=== PATIENT | male | born 1980 | race Caucasian/White ===

== ENCOUNTER 2017-01-26 20:08 | Emergency (ER) | payer OTHER ==
[2017-01-26 20:15] VITALS: BP 137/93; PULSE 98; RESP 16; TEMP 98
[2017-01-26] MEDS ORDERED: HYDROmorphone 1 MG/ML 1 ML SYRINGE IVP STA (21:04)
[2017-01-26] MEDS ORDERED: ONDANSETRON ODT 4 MG TAB PO STA (21:04)
--- NOTE | 2017-01-26 21:16 | ED ---
General Adult HPI - General Chief complaint: Fall Stated complaint: Fall/Rib Pain Time Seen by Provider: 01/26/17 20:47 Source: patient, RN notes reviewed Mode of arrival: ambulatory Limitations: no limitations - History of Present Illness Initial comments: This is a 36-year-old male who presents with left-sided rib pain, left hip pain , lower back pain and neck pain after falling through a catwalk and landing on a beam below. Patient states he fell approximately 3 hours before he came to the . Patient states he did not fall more than 3 feet before he landed on his left side on a beam. Patient now states it hurts to take deep breaths. Patient states his lower back hurts when he gets up to walk. Patient also complains of left hip pain with walking. Patient was able to ambulate but this was very painful. Patient denies any numbness/tingling or weakness. Patient denies any change in bowel or bladder function, loss of sensation to the saddle area. Patient states he did not hit his head or lose consciousness. Patient states he does have some neck pain from the whiplash effect of falling. Patient denies any recent fever, chills, shortness breath, chest pain, abdominal pain, nausea/vomiting/diarrhea, numbness, tingling, hematuria, headache, or visual changes, dizziness or any other complaints. - Related Data Home Medications Medication Instructions Recorded Confirmed [place]-3 Fatty Acids/Fish Oil [Fish 1 cap PO DAILY 01/26/17 01/26/17 Oil 1,000 mg Softgel] Previous Rx's Medication Instructions Recorded HYDROcodone/APAP 5-325MG [Thurmond 1 tab PO Q6HR #12 tab 01/26/17 5-325] Allergies Allergy/AdvReac Type Severity Reaction Status Date / Time codeine AdvReac Nausea & Verified 01/26/17 20:31 Vomiting NSAIDS (Non-Steroidal AdvReac Nausea & Verified 01/26/17 20:31 Anti-Inflamma Vomiting Review of Systems ROS Statement: Those systems with pertinent positive or pertinent negative responses have been documented in the HPI. ROS Other: All systems not noted in ROS Statement are negative. Past Medical History Past Medical History: Asthma History of Any Multi-Drug Resistant Organisms: None Reported Past Surgical History: No Surgical Hx Reported Past Psychological History: No Psychological Hx Reported Smoking Status: Current every day smoker Past Alcohol Use History: None Reported, Rare Past Drug Use History: None Reported General Exam - General Exam Comments Initial Comments: General: The patient is awake and alert, in no distress, and does not appear acutely ill. Eye: Pupils are equal, round and reactive to light, extra-ocular movements are intact. No nystagmus. There is normal conjunctiva bilaterally. No signs of icterus. Mouth and throat: There are moist mucous membranes and no oral lesions. Neck: There is mild cervical midline tenderness and tenderness of the cervical paraspinal muscles. The neck is supple, there is no tenderness or JVD. Cardiovascular: There is a regular rate and rhythm. No murmur, rub or gallop is appreciated. Respiratory: Lungs are clear to auscultation, respirations are non-labored, breath sounds are equal. No wheezes, stridor, rales, or rhonchi. Musculoskeletal: There is tenderness to the left lateral, posterior and anterior ribs. There is tenderness to the lumbar spine and to the left-sided lumbar paraspinal muscles. There is tenderness to the lateral aspect of the left hip. Normal ROM, Strength 5/5. Sensation intact. Radial pulses equal bilaterally 2+. Gastrointestinal: Soft, non-distended, non-tender abdomen without masses or organomegaly noted. There is no rebound or guarding present. Bowel sounds are unremarkable. Neurological: A&O x 3. CN II-XII intact, There are no obvious motor or sensory deficits. Coordination appears grossly intact. Speech is normal. Skin: There is faint ecchymosis to the left posterior lower back. Skin is warm and dry and no rashes or lesions are noted. Psychiatric: Cooperative, appropriate mood & affect, normal judgment. Limitations: no limitations Course Vital Signs 01/26/17 20:12 Temperature 98.0 F Pulse Rate 98 Respiratory 16 Rate Blood Pressure 137/93 O2 Sat by Pulse 98 Oximetry Medical Decision Making - Medical Decision Making This is a 36-year-old male who presents after a fall that happened today. On physical exam patient is neurologically intact. There is tenderness to the left lateral, posterior and anterior ribs. There is tenderness to the lumbar spine and to the left-sided lumbar paraspinal muscles. There is tenderness to the lateral aspect of the left hip. Normal ROM, Strength 5/5. Sensation intact. Radial pulses equal bilaterally 2+. There is cervical midline tenderness present. Patient was given Dilaudid in the [facility] today. A CT of the C-spine was done and reviewed showing: Negative computed tomography scan of the cervical spine. No fracture. Reports read by Dr. Todd. X-rays of the left-sided ribs, chest x-ray, left hip and the lumbar and thoracic spine were done and reviewed showing: Negative thoracic spine exam. No change. Report by Dr. Todd. Negative left rib exam. No fracture. Normal chest. Negative lumbar spine exam. No change. Report by Dr. Todd. Negative left hip exam. No change compared 06/20/2015. I discussed the results with patient. I discussed rib contusion and healing can take 4-6 weeks. I discussed the patient will receive a prescription of Thurmond. I discussed Motrin as needed. I discussed the importance of continued deep breaths to prevent pneumonia and atelectasis. Patient received an incentive spirometer before discharge. I discussed warm heating pads to the areas of pain. I discussed Return parameters. Patient was ambulatory in the [facility]. Discussed that patient should follow up with PCP in one to 2 days or return to the [facility] for any worsening symptoms or for any further concerns. Patient was receptive to this plan and patient will be discharged home. Disposition Clinical Impression: Contusion of rib on left side, Low back pain Disposition: HOME SELF-CARE Condition: Good Instructions: Rib Contusion (ED) Additional Instructions: Please take Thurmond as prescribed. May use Motrin as well. Please use warm heating pads to the area pain. Please continue to take deep breaths to prevent pneumonia or atelectasis. Bruised ribs can take 4-6 weeks to feel better. Please follow-up with your primary care physician in one to 2 days or return to the EC for any worsening symptoms or for any further concerns. Prescriptions: HYDROcodone/APAP 5-325MG [Thurmond 5-325] 1 tab PO Q6HR #12 tab Referrals: Jean Reina MD [Primary Care Provider] - 1-2 days Time of Disposition: 22:06
--- NOTE | 2017-01-26 21:33 | XR ---
EXAMINATION TYPE: XR ribs LT w pa chest xray DATE OF EXAM: 01/26/2017 9:28 PM COMPARISON: NONE HISTORY: Fall and rib pain TECHNIQUE: 5 views FINDINGS: Heart and mediastinum are normal. Lungs are clear. There is no sign of pleural effusion or pneumothorax. The left ribs appear intact. IMPRESSION: Negative left rib exam. No fracture. Normal chest.
--- NOTE | 2017-01-26 21:34 | XR ---
EXAMINATION TYPE: XR thoracic spine complete DATE OF EXAM: 01/26/2017 9:28 PM COMPARISON: 09/03/2016 HISTORY: Back pain TECHNIQUE: 3 views FINDINGS: Vertebra have normal spacing and alignment. Posterior elements are intact. There is no para spinal mass. There is no sign of compression fracture. IMPRESSION: Negative thoracic spine exam. No change.
--- NOTE | 2017-01-26 21:35 | XR ---
EXAMINATION TYPE: XR lumbar spine 2 or 3V DATE OF EXAM: 01/26/2017 9:28 PM COMPARISON: 09/03/2016 HISTORY: Back pain TECHNIQUE: 3 views FINDINGS: Lumbar vertebra have normal spacing and alignment. Posterior elements are intact. Sacroilia c joints appear normal. IMPRESSION: Negative lumbar spine exam. No change.
--- NOTE | 2017-01-26 21:37 | XR ---
EXAMINATION TYPE: XR Hip LT and AP Pelvis DATE OF EXAM: 01/26/2017 9:30 PM COMPARISON: 06/20/2015 HISTORY: Hip pain TECHNIQUE: 3 views FINDINGS: The pelvic ring is intact. Proximal left femur and hip joint appear intact. Sacroiliac join ts appear normal. CONCLUSION: Negative left hip exam. No change compared to 06/20/2015.
--- NOTE | 2017-01-26 21:45 | CT ---
EXAMINATION TYPE: CT cervical spine wo con DATE OF EXAM: 01/26/2017 9:41 PM COMPARISON: NONE HISTORY: Fall approximately 1 foot after cat walk gave way under him, landing on rafter at mid sectio n and bending forward. CT DLP: 360.40 mGycm Automated exposure control for dose reduction was used. TECHNIQUE: CT scan of the cervical spine is obtained without contrast, axial images are obtained, sa gittal and coronal reformatted images are also reviewed. FINDINGS: Cervical vertebra are fairly normal spacing and alignment. Posterior elements are intact. F acet joints appear intact. Skull base is intact. IMPRESSION: Negative CT scan of the cervical spine. No fracture.
[2017-01-26] MEDS ORDERED: HYDROmorphone 1 MG/ML 1 ML SYRINGE IM STA (22:08)
[2017-01-26] MEDS: HYDROmorphone 1 MG/ML 1 ML SYRINGE IVP STA ×2 (22:11→22:17)
== END 2017-01-26 22:23 | disposition home or self-care (01) ==
LOC: EC 20:08
DX: S20.212A Contusion of left front wall of thorax, initial encounter (principal); M54.5 Low back pain; M54.2 Cervicalgia; M25.552 Pain in left hip; F17.200 Nicotine dependence, unspecified, uncomplicated; Z79.899 Other long term (current) drug therapy; Z88.5 Allergy status to narcotic agent; Z88.6 Allergy status to analgesic agent; W17.89XA Other fall from one level to another, initial encounter; Y93.01 Activity, walking, marching and hiking
CPT/HCPCS: 71101; 72072; 72100; 73502; 72125; 99284; 96374; 96372; J1170

== ENCOUNTER 2017-01-29 08:00 | Emergency (ER) | payer OTHER ==
[2017-01-29 08:23] VITALS: BP 146/77; PULSE 98; RESP 20; TEMP 98.8
--- NOTE | 2017-01-29 09:00 | ED ---
Back Pain HPI - General Chief Complaint: Back Pain/Injury Stated Complaint: RIB AND BACK INJURY FROM FALL Time Seen by Provider: 01/29/17 08:46 Source: patient, RN notes reviewed Limitations: no limitations - History of Present Illness Initial Comments: This is a 36-year-old male presents emergency Department chief complaint pain. Patient was seen here a few days ago for a fall. Patient was on his catwalk in his whole barn when fell onto the [place]. Patient found his left side and has continue rib pain, back pain. Patient had completely imaging performed with no acute fractures. He states the pain is getting better but states he continues to have pain without any pain meds at this time. Patient has an appointment on Thursday with his primary care physician in the clinic. Patient denies any bowel, bladder incontinence or retention. Denies any saddle anesthesias. Patient denies any shortness breath. He states he does have some pain along his wrist when he takes a deep inspiration. Patient denies any headache or dizziness at this time. - Related Data Previous Rx's Medication Instructions Recorded Cyclobenzaprine [Flexeril] 5 mg PO TID PRN #15 tablet 01/29/17 Hydrocodone/Acetaminophen [[place] 1 tab PO Q6HR PRN #15 tab 01/29/17 5-325] Allergies Allergy/AdvReac Type Severity Reaction Status Date / Time codeine AdvReac Nausea & Verified 01/29/17 08:50 Vomiting NSAIDS (Non-Steroidal AdvReac Nausea & Verified 01/29/17 08:50 Anti-Inflamma Vomiting Review of Systems ROS Statement: Those systems with pertinent positive or pertinent negative responses have been documented in the HPI. ROS Other: All systems not noted in ROS Statement are negative. Past Medical History Past Medical History: Asthma History of Any Multi-Drug Resistant Organisms: None Reported Past Surgical History: No Surgical Hx Reported Past Psychological History: No Psychological Hx Reported Smoking Status: Current every day smoker Past Alcohol Use History: None Reported, Rare Past Drug Use History: None Reported General Exam Limitations: no limitations General appearance: alert, in no apparent distress Head exam: Present: atraumatic, normocephalic, normal inspection Neck exam: Present: full ROM Respiratory exam: Present: normal lung sounds bilaterally, chest wall tenderness (Mild chest wall tenderness on the left). Absent: respiratory distress, wheezes, rales, rhonchi, stridor Cardiovascular Exam: Present: regular rate, normal rhythm, normal heart sounds. Absent: systolic murmur, diastolic murmur, rubs, gallop, clicks GI/Abdominal exam: Present: soft, normal bowel sounds. Absent: distended, tenderness, guarding, rebound, rigid Extremities exam: Present: normal inspection, full ROM, normal capillary refill. Absent: tenderness, pedal edema, joint swelling, calf tenderness Back exam: Present: full ROM, tenderness (Mild tenderness along the left lumbar , lower thoracic paraspinal region there is no vertebral tenderness), paraspinal tenderness. Absent: vertebral tenderness Neurological exam: Present: alert, oriented X3, CN II-XII intact, reflexes normal. Absent: motor sensory deficit Course Vital Signs 01/29/17 08:20 Temperature 98.8 F Pulse Rate 98 Respiratory 20 Rate Blood Pressure 146/77 O2 Sat by Pulse 99 Oximetry Medical Decision Making - Medical Decision Making 36-year-old male presented for pain after fall. Patient medical records were thoroughly reviewed all imaging was reviewed. Patient has no acute fractures. Patient has no neurological deficits no red flag symptoms. Patient will discharged with pain medication until Thursday for his appointment with PCP. Disposition Clinical Impression: Fall, Back pain, Contusion of rib on left side, Neck pain Disposition: HOME SELF-CARE Condition: Stable Instructions: Rib Contusion (ED) Additional Instructions: Please return to the Emergency Department if symptoms worsen or any other concerns. Prescriptions: Cyclobenzaprine [Flexeril] 5 mg PO TID PRN #15 tablet PRN Reason: Muscle Spasm Hydrocodone/Acetaminophen [[place] 5-325] 1 tab PO Q6HR PRN #15 tab PRN Reason: Pain Time of Disposition: 08:59
== END 2017-01-29 09:15 | disposition home or self-care (01) ==
LOC: EC 08:00
DX: S20.212A Contusion of left front wall of thorax, initial encounter (principal); M54.2 Cervicalgia; M54.5 Low back pain; M54.6 Pain in thoracic spine; F17.200 Nicotine dependence, unspecified, uncomplicated; Z88.5 Allergy status to narcotic agent; Z88.6 Allergy status to analgesic agent; W17.89XA Other fall from one level to another, initial encounter; Y93.01 Activity, walking, marching and hiking
CPT/HCPCS: 99283

== ENCOUNTER 2018-03-10 14:35 | Emergency (ER) | payer OTHER ==
[2018-03-10] MEDS ORDERED: ONDANSETRON 4 MG/2 ML VIAL IVP STA (15:17)
--- NOTE | 2018-03-10 15:35 | ED ---
Head Injury HPI - General Chief complaint: Head Injury Stated complaint: Head Lac Time Seen by Provider: 03/10/18 15:12 Source: patient Mode of arrival: ambulatory Limitations: no limitations - History of Present Illness Initial comments: This 37-year-old white male presents with a complaint of a head injury. He apparently was at a work site and was wearing his helmet when a large beam fell down and hit him in the head/helmet. He apparently had a proximally 1-1/2 minute loss of consciousness. He obtained a 2 cm laceration to his occipital superior scalp. He is complaining of significant neck pain. He had some slight numbness of his left arm initially but currently just has slight numbness of his left hand. He has some minimal pain in his left hand at the base of his fourth and fifth digits. He denies any other injuries. This occurred just shortly prior to arrival. He is not on any blood thinner medications. No other complaints or modifying factors. - Related Data Home Medications Medication Instructions Recorded Confirmed Acetaminophen [Tylenol] 650 mg PO Q4H PRN 09/29/17 09/29/17 Ibuprofen [Motrin] 400 mg PO Q6HR PRN 09/29/17 09/29/17 Previous Rx's Medication Instructions Recorded Ibuprofen [Motrin] 600 mg PO Q6HR PRN #30 day 09/29/17 Penicillin V Potassium [Pen Vee K] 500 mg PO QID #40 tablet 09/29/17 Cyclobenzaprine [Flexeril] 10 mg PO TID PRN #20 tab 03/10/18 Ibuprofen [Motrin] 800 mg PO Q8H PRN #20 tab 03/10/18 traMADol HCl [Ultram] 50 - 100 mg PO Q6H PRN #15 tab 03/10/18 Allergies/Adverse reactions: Allergies Allergy/AdvReac Type Severity Reaction Status Date / Time shellfish derived [Shellfish] Allergy Unknown Verified 03/10/18 14:49 codeine AdvReac Nausea & Verified 03/10/18 14:49 Vomiting Review of Systems ROS Statement: Those systems with pertinent positive or pertinent negative responses have been documented in the HPI. ROS Other: All systems not noted in ROS Statement are negative. Past Medical History Past Medical History: Asthma History of Any Multi-Drug Resistant Organisms: None Reported Past Surgical History: No Surgical Hx Reported Past Psychological History: No Psychological Hx Reported Smoking Status: Current every day smoker Past Alcohol Use History: Rare Past Drug Use History: None Reported General Exam - General Exam Comments Initial Comments: GENERAL: The patient is well nourished and well hydrated. VITAL SIGNS: Heart rate, blood pressure, respiratory rate reviewed as recorded in nurse's notes. EYES: Pupils are round and reactive. Extraocular movements are intact. No conjunctival / lid redness or swelling. ENT: There is a 2 cm laceration noted to the superior occiput. Midline which is linear in nature. Airway is patent. Throat is clear. NECK: There is tenderness noted to the neck diffusely. There is no step-off deformity. No swelling or evidence of injury. No subcutaneous emphysema. Trachea is midline. No thyroid mass. HEART: Regular rate and rhythm. Good peripheral pulses. LUNGS/CHEST: Breath sounds clear and equal bilaterally. No rales, rhonchi, or wheezes. No ecchymosis, subcutaneous emphysema, or tenderness. ABDOMEN: Abdomen soft without tenderness. No palpable masses or organomegaly. No peritoneal signs. No abdominal wall swelling or ecchymosis. EXTREMITIES: There is no abdominal tenderness noted to the left hand primarily at the base of the fourth and fifth digits with minimal hematoma. There is excellent range of motion of all digits and hand without any difficulty. Normal muscle tone and function. No thoracolumbar tenderness. NEUROLOGIC: Sensation is grossly intact. Cranial nerve exam reveals face is symmetrical, tongue is midline, speech is clear. SKIN: No abrasions or ecchymosis is noted. No induration or masses noted. PSYCHIATRIC: Alert and oriented. Appropriate behavior and judgment. Limitations: no limitations Course Vital Signs 03/10/18 03/10/18 14:46 16:18 Temperature 98.6 F Pulse Rate 58 L 119 H Respiratory 20 Rate Blood Pressure 143/82 148/78 O2 Sat by Pulse 98 97 Oximetry Medical Decision Making - Medical Decision Making The patient was seen and examined. All diagnostics were reviewed. An IV is started and he does receive intravenous morphine and Zofran for pain and nausea prevention. He states that his last tetanus was approximately 2 years ago so he is up-to-date. The computed tomography scan of the brain did not show any acute processes. The computed tomography scan of the cervical spine did not show any evidence of fracture or acute abnormalities. The radiologist does note a pansinusitis and multiple dental caries. The patient received additional morphine for pain. It is felt as though his symptoms are consistent with a concussion. His wound was thoroughly cleansed and it was anesthetized with some lidocaine. It is closed with 8 hernando. The wound came together quite well. He also now relates that he's had significant sinus congestion over the past week with occasional cough. It is felt as though he likely does have a degree of sinusitis as well and will be treated for this. He is counseled regarding concussions, head injury, and neck pain extensively. He understands and agrees with the following disposition and leaves in no distress. Disposition Clinical Impression: Closed head injury, Concussion, Neck injury, Scalp laceration, Hypertension, Sinusitis, Dental caries Disposition: HOME SELF-CARE Instructions: Concussion (ED), Cervical Sprain (ED), Sinusitis (ED), Hypertension (ED) Additional Instructions: Please have the hernando removed in 10 days by primary care physician. Prescriptions: Cyclobenzaprine [Flexeril] 10 mg PO TID PRN #20 tab PRN Reason: Pain Ibuprofen [Motrin] 800 mg PO Q8H PRN #20 tab PRN Reason: Pain traMADol HCl [Ultram] 50 - 100 mg PO Q6H PRN #15 tab PRN Reason: Pain Is patient prescribed a controlled substance at discharge?: Yes If prescribed controlled substance>3 days was MAPS reviewed?: Yes When asked, does pt state using other controlled substances?: No Referrals: Jean Reina MD [Primary Care Provider] - 1-2 days Time of Disposition: 16:39
[2018-03-10] MEDS: MORPHINE SULFATE 4MG/4ML SYRG IV STA ×2 (15:52→16:23)
--- NOTE | 2018-03-10 16:00 | CT ---
EXAMINATION TYPE: CT brain mark wo con DATE OF EXAM: 03/10/2018 COMPARISON: NONE HISTORY: 37-year-old male Head and neck pain after head injury CT DLP: 1432.5 mGycm Automated exposure control for dose reduction was used. Technique: Examination of the head was done in axial plane without intravenous contrast. Coronal and sagittal reconstructions performed. CT of the cervical spine was obtained in axial plane without intravenous injection of contrast mater ial. Coronal and sagittal reformatted images were obtained from the axial views for evaluation of f ractures, spinal alignment and canal. FINDINGS: Head: There is no evidence of acute intracranial hemorrhage, acute ischemic changes, mass, mass-effect, or extra-axial fluid collection. There is no effacement of cerebral sulci or basal subarachnoid cister ns. There is no hydrocephalus. There is no midline shift. Blackburn-white matter distinction is preserv ed. Severe mucosal thickening maxillary sinuses and ethmoid air cells and moderate within the sphenoid si nuses. Mastoid air cells well pneumatized. Orbits and globes appear intact. There may be a small left superior parietal scalp hematoma. No underlying calvarial fracture. Cervical spine: Patient is partially edentulous. Multiple dental caries. No acute fracture of the cervical spine. No craniocervical junction and midbody, predental space wide eb, or prevertebral soft tissue swelling. Alignment is maintained. No large focal disc herniation identified though assessment of the spinal canal from C6-C7 and below is limited due to artifact from the patient's shoulders. No significant neuroforaminal stenosis seen. Sagittal and coronal reformatted images confirm above findings. COMBINED IMPRESSION: 1. No acute intracranial abnormality seen. Query small superior left parietal scalp hematoma. 2. No acute fracture or malalignment of the cervical spine. 3. Moderate to severe chronic pansinus disease. Consider ENT referral if symptomatic. 4. Incidental: Multiple dental caries.
[2018-03-10] MEDS ORDERED: MORPHINE SULFATE 4MG/4ML SYRG IV STA (16:22)
[2018-03-10] MEDS ORDERED: MORPHINE SULFATE 4 MG/ML SYRINGE IV STA (16:22)
[2018-03-10] MEDS ORDERED: MORPHINE SULFATE 4MG/4ML SYRG ONE (16:22)
[2018-03-10] MEDS ORDERED: LIDOCAINE 1%-EPI 1:100,000 20 ML VIAL SQ STA (16:25)
--- NOTE | 2018-03-10 16:29 | XR ---
EXAMINATION TYPE: XR hand complete LT DATE OF EXAM: 03/10/2018 COMPARISON: NONE HISTORY: 37-year-old male with pain after injury between the fourth and fifth digits. TECHNIQUE: 3 views FINDINGS: An IV is present. There may be some focal soft tissue swelling at the fourth webspace. No retained ra diopaque foreign body or soft tissue air seen. No acute fracture, subluxation, or dislocation. [place] chloe cortical thickening along the radial margin of the fifth middle phalangeal shaft probably bone is land. IMPRESSION: No acute osseous abnormality seen.
[2018-03-10] MEDS ORDERED: LIDOCAINE 1%-EPI 1:100,000 30 ML VIAL SQ STA (16:31)
[2018-03-10 16:56] VITALS: BP 144/78; PULSE 60; RESP 17; TEMP 98.7
== END 2018-03-10 16:55 | disposition home or self-care (01) ==
LOC: EC 14:35
DX: S06.0X1A Concussion with loss of consciousness of 30 minutes or less, initial encounter (principal); S01.01XA Laceration without foreign body of scalp, initial encounter; S19.9XXA Unspecified injury of neck, initial encounter; I10 Essential (primary) hypertension; J32.4 Chronic pansinusitis; K02.9 Dental caries, unspecified; S60.042A Contusion of left ring finger without damage to nail, initial encounter; S60.052A Contusion of left little finger without damage to nail, initial encounter; F17.200 Nicotine dependence, unspecified, uncomplicated; Z88.5 Allergy status to narcotic agent; Z91.013 Allergy to seafood; W20.8XXA Other cause of strike by thrown, projected or falling object, initial encounter; Y92.69 Other specified industrial and construction area as the place of occurrence of the external cause; Y99.0 Civilian activity done for income or pay
CPT/HCPCS: 73130; 72125; 70450; 99284; 12001; 96374; 96375; J2405; J2270

== ENCOUNTER 2024-08-03 10:21 | Emergency (ER) | payer OTHER ==
[2024-08-03 10:56] VITALS: RESP 18
--- NOTE | 2024-08-03 10:57 | ED ---
General Adult HPI - General Chief complaint: Upper Respiratory Infection Stated complaint: Sore Throat Time Seen by Provider: 08/03/24 10:56 Source: patient, RN notes reviewed Mode of arrival: ambulatory Limitations: no limitations - History of Present Illness Initial comments: 43-year-old male presented to ER with a chief complaint of sore throat. Patient reports yesterday he started to note an achy sore throat. He has been also noting chills and night sweats. States that he woke up this morning unable to swallow due to the swelling which brought him to the ER. He has been taking [id number] Tylenol last dose around 8 AM. He states he has a tender neck as well. He denies any cough, difficulty breathing or wheezing. He states he is unable to swallow. No known sick contacts. No significant past medical history. Patient is a smoker. - Related Data Home Medications Medication Instructions Recorded Confirmed Acetaminophen [Tylenol] 650 mg PO Q4H PRN 09/29/17 03/12/18 Previous Rx's Medication Instructions Recorded Penicillin V Potassium [Pen Vee K] 500 mg PO QID #40 tablet 09/29/17 Cyclobenzaprine [Flexeril] 10 mg PO TID PRN #20 tab 03/10/18 Ibuprofen [Motrin] 800 mg PO Q8H PRN #20 tab 03/10/18 traMADol HCl [Ultram] 50 - 100 mg PO Q6H PRN #15 tab 03/10/18 Ibuprofen [Motrin] 800 mg PO TID #30 tab 03/12/18 methocarbamoL [Robaxin-750] 750 mg PO TID #21 tablet 03/12/18 Allergies Allergy/AdvReac Type Severity Reaction Status Date / Time shellfish derived [Shellfish] Allergy Unknown Verified 08/03/24 10:29 codeine AdvReac Nausea & Verified 08/03/24 10:29 Vomiting Review of Systems ROS Statement: Those systems with pertinent positive or pertinent negative responses have been documented in the HPI. ROS Other: All systems not noted in ROS Statement are negative. Past Medical History Past Medical History: Asthma History of Any Multi-Drug Resistant Organisms: None Reported Past Surgical History: No Surgical Hx Reported Past Psychological History: Depression Smoking Status: Current every day smoker Past Alcohol Use History: Rare Past Drug Use History: None Reported General Exam Limitations: no limitations General appearance: alert, in no apparent distress ENT exam: Present: mucous membranes moist, TM's normal bilaterally, other (Edematous bilateral tonsils no exudates) Neck exam: Present: lymphadenopathy (Right submandibular) Respiratory exam: Present: normal lung sounds bilaterally. Absent: respiratory distress, wheezes, rales, rhonchi, stridor Cardiovascular Exam: Present: regular rate, normal rhythm, normal heart sounds. Absent: systolic murmur, diastolic murmur, rubs, gallop, clicks Neurological exam: Present: alert, oriented X3, CN II-XII intact Skin exam: Present: warm, dry, intact, normal color. Absent: rash Course Vital Signs 08/03/24 08/03/24 08/03/24 10:27 10:56 11:19 Temperature 99.6 F 98.1 F Pulse Rate 104 H 88 Respiratory 20 18 18 Rate Blood Pressure 142/77 123/71 O2 Sat by Pulse 99 96 Oximetry 08/03/24 12:56 Temperature 98.3 F Pulse Rate 89 Respiratory 18 Rate Blood Pressure 131/82 O2 Sat by Pulse 98 Oximetry Medical Decision Making - Medical Decision Making Was pt. sent in by a medical professional or institution (, PA, BONDING AGENT, urgent care, hospital, or care home...) When possible be specific @ -No Did you speak to anyone other than the patient for history (EMS, parent, family, police, friend...)? What history was obtained from this source @ -No Did you review nursing and triage notes (agree or disagree)? Why? @ -I reviewed and agree with nursing and triage notes Were old charts reviewed (outside hosp., previous admission, EMS record, old EKG, old radiological studies, urgent care reports/EKG's, care home records)? Report findings @ -No old charts were reviewed Differential Diagnosis (chest pain, altered mental status, abdominal pain women, abdominal pain men, vaginal bleeding, weakness, fever, dyspnea, syncope, headache, dizziness, GI bleed, back pain, seizure, CVA, palpatations, mental health, musculoskeletal)? @ -COVID, RSV, influenza, viral sinusitis, pneumonia this list is not meant to be all-inclusive EKG interpreted by me (3pts min.). @ -None X-rays interpreted by me (1pt min.). @ -None done CT interpreted by me (1pt min.). @ -None done U/S interpreted by me (1pt. min.). @ -None done What testing was considered but not performed or refused? (CT, X-rays, U/S, labs)? Why? @ -None What meds were considered but not given or refused? Why? @ -None Did you discuss the management of the patient with other professionals (professionals i.e. DrKeeely, PA, BONDING AGENT, lab, RT, psych nurse, forensic social worker, soft water mechanic, teacher, retail loss prevention officer, classification case manager)? Give summary @ -No Was smoking cessation discussed for >3mins.? @ -No Was critical care preformed (if so, how long)? @ -No Were there social determinants of health that impacted care today? How? (Homelessness, low income, unemployed, alcoholism, drug addiction, transportation, low edu. Level, literacy, decrease access to med. care, detention, rehab)? @ -No Was there de-escalation of care discussed even if they declined (Discuss DNR or withdrawal of care, Hospice)? DNR status @ -No What co-morbidities impacted this encounter? (DM, HTN, Smoking, COPD, CAD, Cancer, CVA, ARF, Chemo, Hep., AIDS, mental health diagnosis, sleep apnea, morbid obesity)? @ -Smoker Was patient admitted / discharged? Hospital course, mention meds given and route, prescriptions, significant lab abnormalities, going to OR and other pertinent info. @ -Discharge. 43-year-old male presented to the ER with a chief complaint of sore throat. History and physical exam completed. Vitals upon examination stable. Patient in no signs of acute distress nontoxic-appearing. Bilateral tonsils edematous no exudates. Heterophile, Strep, influenza RSV and COVID- negative. Patient received IM Decadron for symptom control in the ER. Upon reevaluation, patient resting comfortably exam room in no signs of acute distress. Patient reporting improved symptoms with Decadron. Symptoms believed to viral in nature. Advise close follow-up with PCP. Strict turn parameters discussed. Patient discharged stable condition. Patient verbally expressed understanding and agreement with care plan. Case discussed with the attending of Undiagnosed new problem with uncertain prognosis? @ -No Drug Therapy requiring intensive monitoring for toxicity (Heparin, Nitro, Insulin, Cardizem)? @ -No Were any procedures done? @ -No Diagnosis/symptom? @ -Enlarged tonsils/sore throat Acute, or Chronic, or Acute on Chronic? @ -acute Uncomplicated (without systemic symptoms) or Complicated (systemic symptoms)? @ -uncomplicated Side effects of treatment? @ -No Exacerbation, Progression, or Severe Exacerbation? @ -No Poses a threat to life or bodily function? How? (Chest pain, [place], [place], pneumonia, PE, COPD, DKA, ARF, appy, cholecystitis, CVA, Diverticulitis, Homicidal, Suicidal, threat to staff... and all critical care pts) @ -No - Lab Data Lab Results 08/03/24 08/03/24 08/03/24 Range/Units 11:07 11:07 11:07 Heterophile Antibody Negative (Negative) Influenza Type A (PCR) Not Detected (Not Detectd) Influenza Type B (PCR) Not Detected (Not Detectd) RSV (PCR) Not Detected (Not Detectd) SARS-CoV-2 (PCR) Not Detected (Not Detectd) Group A Strep (PCR) NOT DETECTED (Not Detectd) Disposition Clinical Impression: Enlarged tonsils, Sore throat Disposition: HOME SELF-CARE Condition: Stable Additional Instructions: Follow-up with PCP in the next 1 to 2 days. You may take [id number] Tylenol Motrin for pain control. Return to the ER for any new or worsening concerns. Is patient prescribed a controlled substance at d/c from ED?: No Referrals: None,Stated [Primary Care Provider] - 1-2 days Forms: Area PCPs Time of Disposition: 12:40
[2024-08-03] MEDS: DEXAMETHASONE SOD PHOSPHATE 4 MG/ML 1 ML VIAL IM STA (11:02)
[2024-08-03 12:57] VITALS: BP 131/82; PULSE 89; TEMP 98.3
== END 2024-08-03 12:57 | disposition home or self-care (01) ==
LOC: EC 10:21
CPT/HCPCS: 36415; 86308; 87636; 87651; 96372; 99283

== ENCOUNTER 2024-08-04 10:17 | Emergency (ER) | payer OTHER ==
--- NOTE | 2024-08-04 10:39 | ED ---
ENT HPI - General Chief complaint: ENT Stated complaint: facial/throat swelling Time Seen by Provider: 08/04/24 10:38 Source: patient, RN notes reviewed Mode of arrival: ambulatory Limitations: no limitations - History of Present Illness Initial comments: 43-year-old male presented to the ER with a chief complaint of throat swelling. Patient was seen yesterday for similar complaint. Patient received IM Decadron at that time. Viral swabs, heterophile and strep were negative. Patient states throughout the night he has an increase in swelling and has been unable to handle his own secretions. He does report he is having some mild difficulty breathing. He states he was running low-grade fevers at home. He has not been able to eat in the past 2 days. Patient is a smoker. Denies any chest pain, shortness of breath, abdominal pain, peripheral edema. - Related Data Home Medications Medication Instructions Recorded Confirmed No Known Home Medications 08/04/24 08/04/24 Allergies Allergy/AdvReac Type Severity Reaction Status Date / Time shellfish derived [Shellfish] Allergy Nausea & Verified 08/04/24 11:46 Vomiting codeine AdvReac Nausea & Verified 08/04/24 11:46 Vomiting Review of Systems ROS Statement: Those systems with pertinent positive or pertinent negative responses have been documented in the HPI. ROS Other: All systems not noted in ROS Statement are negative. Past Medical History Past Medical History: Asthma History of Any Multi-Drug Resistant Organisms: None Reported Past Surgical History: No Surgical Hx Reported Past Psychological History: Depression Smoking Status: Current every day smoker Past Alcohol Use History: Rare Past Drug Use History: None Reported General Exam Limitations: no limitations General appearance: alert, in no apparent distress Head exam: Present: atraumatic, normocephalic, normal inspection Eye exam: Present: normal appearance, PERRL, EOMI. Absent: scleral icterus, conjunctival injection, periorbital swelling ENT exam: Present: mucous membranes moist, other (oropharynx patent. bilateral tonsils edematous no exudates. ) Neck exam: Present: tenderness (edematous right submanibular region with distal spread to mid neck tender to touch. pt spitting up saliva on exam.) Respiratory exam: Present: normal lung sounds bilaterally. Absent: respiratory distress, wheezes, rales, rhonchi, stridor Cardiovascular Exam: Present: normal rhythm, tachycardia, normal heart sounds Neurological exam: Present: alert, oriented X3, CN II-XII intact Skin exam: Present: warm, dry, intact, normal color. Absent: rash Course Vital Signs 08/04/24 08/04/24 08/04/24 10:27 12:10 13:30 Temperature 99 F 98.8 F Pulse Rate 125 H 104 H 107 H Respiratory 20 18 98 H Rate Blood Pressure 122/70 114/73 124/74 O2 Sat by Pulse 98 100 98 Oximetry - Reevaluation(s) Reevaluation #1: 08/04/24 1059 SIRS criteria 08/04/24 1143 Antibiotics ordered, blood cultures obtained. For ENT infection. 08/04/24 13:20 Patient reevaluated. Patient sitting up in bed in no signs of acute distress. Vital signs stable. Transfer discussed with patient. Patient is agreeable. 08/04/24 13:[address] Casey at [facility] who accetps transfer. Medical Decision Making - Medical Decision Making Was pt. sent in by a medical professional or institution (, PA, TRAVEL ACCOMMODATION INSPECTOR, urgent care, hospital, or [facility]...) When possible be specific @ -No Did you speak to anyone other than the patient for history (EMS, parent, family, police, friend...)? What history was obtained from this source @ -No Did you review nursing and triage notes (agree or disagree)? Why? @ -I reviewed and agree with nursing and triage notes Were old charts reviewed (outside hosp., previous admission, EMS record, old EKG, old radiological studies, urgent care reports/EKG's, [facility] records)? Report findings @ -Yes, I reviewed laboratory studies and documentation from 08-03-2024. Patient seen for similar complaint. Heterophile, strep, COVID, RSV and in fluenza negative at that time. Patient received IM Decadron for symptom control. Differential Diagnosis (chest pain, altered mental status, abdominal pain women, abdominal pain men, vaginal bleeding, weakness, fever, dyspnea, syncope, headache, dizziness, GI bleed, back pain, seizure, CVA, palpatations, mental health, musculoskeletal)? @ -Strep pharyngitis, COVID, influenza, RSV, dental abscess, retropharyngeal abscess, Jonathon angina This list is not meant to be all-inclusive EKG interpreted by me (3pts min.). @ -As above X-rays interpreted by me (1pt min.). @ -None done CT interpreted by me (1pt min.). @ -CT soft tissue neck showing a somewhat ill-defined left oropharynx peripherally enhancing masses with hypodense centers. Findings could represent either a tonsillar abscess with mild lymphadenopathy or neoplasm. U/S interpreted by me (1pt. min.). @ -None done What testing was considered but not performed or refused? (CT, X-rays, U/S, labs)? Why? @ -None What meds were considered but not given or refused? Why? @ -None Did you discuss the management of the patient with other professionals (professionals i.e. , PA, TRAVEL ACCOMMODATION INSPECTOR, lab, RT, psych nurse, health social work professor, car knocker, teacher, staff combat information center officer, case filler)? Give summary @ -Discussed with Dr.Coyne Tomas who accepts transfer. Was smoking cessation discussed for >3mins.? @ -No Was critical care preformed (if so, how long)? @ -Yes 35 minutes Were there social determinants of health that impacted care today? How? (Homelessness, low income, unemployed, alcoholism, drug addiction, transportation, low edu. Level, literacy, decrease access to med. care, long-term, rehab)? @ -No Was there de-escalation of care discussed even if they declined (Discuss DNR or withdrawal of care, Hospice)? DNR status @ -No What co-morbidities impacted this encounter? (DM, HTN, Smoking, COPD, CAD, Cancer, CVA, ARF, Chemo, Hep., AIDS, mental health diagnosis, sleep apnea, morbid obesity)? @ -Smoker Was patient admitted / discharged? Hospital course, mention meds given and route, prescriptions, significant lab abnormalities, going to OR and other pertinent info. @ -Transferred. 43-year male presented to ER with a chief complaint of throat swelling. History and physical exam completed. Vitals upon arrival cristiane for temperature 99, heart rate 125, respiratory rate 20, blood pressure 122/70, oxygen saturation 90% on room air. Patient with mild signs of dried distress not able to tolerate 1 secretions. High potato voice. Left tonsil is mildly erythematous. No exudates. Edema and tenderness to left neck spreading past thyroid. Patient is maintaining his own airway. Laboratory studies obtained showing a leukocytosis of 15.5 with a left shift. Hyponatremia 133, potassium 5.6, chloride 96. Lactic acid 2.2. CT soft tissue neck showing a somewhat ill- defined heterogeneously enhancing masses through hyperdense centers in the left oropharynx measuring 2.3 x 2.1 cm and 3.0 x 2.1 cm findings concerning of tonsillar abscess with mild lymphadenopathy or neoplasm. Patient met sepsis criteria at 1059. Blood cultures and Unasyn ordered at 1143. Patient received 2 L IV fluids and maintenance fluids for sepsis. IV 15mg Toradol, 1.5mg Dilaudid and 4 mg Zofran for symptom control in the ER. I attempted to contact ENT, , without response within 30 minutes. Transfer was considered at that time to [facility] for [facility] evaluation. Patient agreeable for transfer. Case discussed with [facility], Dr. Casey, who accepts transfer. Patient transferred in stable condition via EMS to [facility] for further treatment and evaluation. Case discussed with ED attending, Dr. Kinsey. Undiagnosed new problem with uncertain prognosis? @ -Yes Drug Therapy requiring intensive monitoring for toxicity (Heparin, Nitro, Insulin, Cardizem)? @ -No Were any procedures done? @ -No Diagnosis/symptom? @ -Sepsis/oropharyngeal vs.retropharyngeal abscess vs.neoplasm Acute, or Chronic, or Acute on Chronic? @ -Acute Uncomplicated (without systemic symptoms) or Complicated (systemic symptoms)? @ -Complicated Side effects of treatment? @ -No Exacerbation, Progression, or Severe Exacerbation? @ -No Poses a threat to life or bodily function? How? (Chest pain, [place], [place], pneumonia, PE, COPD, DKA, ARF, appy, cholecystitis, CVA, Diverticulitis, Homicidal, Suicidal, threat to staff... and all critical care pts) @ -Yes, sepsis can lead to endorgan dysfunction. Retropharyngeal abscess can lead to occlusion of trachea which can also be life-threatening leading to hypoxia. - Lab Data Result diagrams: 08/04/24 10:47 08/04/24 10:47 Lab Results 08/04/24 08/04/24 08/04/24 Range/Units 10:47 10:47 10:47 WBC 15.5 H (3.8-10.6) k/uL RBC 4.49 (4.30-5.90) m/uL Hgb 14.0 (13.0-17.5) gm/dL Hct 42.9 (39.0-53.0) % MCV 95.5 (80.0-100.0) fL MCH 31.1 (25.0-35.0) pg MCHC 32.6 (31.0-37.0) g/dL RDW 12.9 (11.5-15.5) % Plt Count 401 (150-450) k/uL MPV 6.9 Neutrophils % 86 % Lymphocytes % 4 % Monocytes % 7 % Eosinophils % 1 % Basophils % 0 % Neutrophils # 13.3 H (1.3-7.7) k/uL Lymphocytes # 0.7 L (1.0-4.8) k/uL Monocytes # 1.1 H (0-1.0) k/uL Eosinophils # 0.1 (0-0.7) k/uL Basophils # 0.0 (0-0.2) k/uL Manual Slide Review Performed RBC Morphology Normal Sodium 133 L (137-145) mmol/L Potassium 5.6 H (3.5-5.1) mmol/L Chloride 96 L (98-107) mmol/L Carbon Dioxide 25 (22-30) mmol/L Anion Gap 12 mmol/L BUN 14 (9-20) mg/dL Creatinine 0.85 (0.66-1.25) mg/dL Est GFR (CKD-EPI)AfAm >90 (>60 ml/min/1.73 sqM) Est GFR (CKD-EPI)NonAf >90 (>60 ml/min/1.73 sqM) Glucose 122 H (74-99) mg/dL Lactic Ac Sepsis Rflx Plasma Lactic Acid Car 2.2 H* (0.7-2.0) mmol/L Calcium 9.4 (8.4-10.2) mg/dL Total Bilirubin 1.6 H (0.2-1.3) mg/dL AST 49 (17-59) U/L ALT 33 (4-49) U/L Alkaline Phosphatase 64 (38-126) U/L Total Protein 7.3 (6.3-8.2) g/dL Albumin 4.3 (3.5-5.0) g/dL 08/04/24 Range/Units 11:23 WBC (3.8-10.6) k/uL RBC (4.30-5.90) m/uL Hgb (13.0-17.5) gm/dL Hct (39.0-53.0) % MCV (80.0-100.0) fL MCH (25.0-35.0) pg MCHC (31.0-37.0) g/dL RDW (11.5-15.5) % Plt Count (150-450) k/uL MPV Neutrophils % % Lymphocytes % % Monocytes % % Eosinophils % % Basophils % % Neutrophils # (1.3-7.7) k/uL Lymphocytes # (1.0-4.8) k/uL Monocytes # (0-1.0) k/uL Eosinophils # (0-0.7) k/uL Basophils # (0-0.2) k/uL Manual Slide Review RBC Morphology Sodium (137-145) mmol/L Potassium (3.5-5.1) mmol/L Chloride (98-107) mmol/L Carbon Dioxide (22-30) mmol/L Anion Gap mmol/L BUN (9-20) mg/dL Creatinine (0.66-1.25) mg/dL Est GFR (CKD-EPI)AfAm (>60 ml/min/1.73 sqM) Est GFR (CKD-EPI)NonAf (>60 ml/min/1.73 sqM) Glucose (74-99) mg/dL Lactic Ac Sepsis Rflx Y Plasma Lactic Acid Car (0.7-2.0) mmol/L Calcium (8.4-10.2) mg/dL Total Bilirubin (0.2-1.3) mg/dL AST (17-59) U/L ALT (4-49) U/L Alkaline Phosphatase (38-126) U/L Total Protein (6.3-8.2) g/dL Albumin (3.5-5.0) g/dL - EKG Data -: EKG Interpreted by [facility] EKG Comments: EKG taken at 11: 30 showing a sinus tachycardia. Inverted P waves in V1 and V2. No acute ST segment or T wave abnormalities. Normal axis. Ventricular rate 115, MI interval 154, QRS duration 91, QT/QTc 296/364. - Radiology Data Radiology results: report reviewed, image reviewed Disposition Clinical Impression: Sepsis, Retropharyngeal abscess Disposition: OTHER INSTITUTION NOT DEFINED Condition: Stable Referrals: None,Stated [Primary Care Provider] - 1-2 days Time of Disposition: 13:22 - Out of Hospital Transfer - Req. Specs Out of Hospital Transfer - Requested Specifics: Other Emergency [facility] ([facility])
[2024-08-04] MEDS: KETOROLAC 15 MG/ML 1 ML VIAL IVP STA (10:49)
[2024-08-04] MEDS: DEXAMETHASONE SOD PHOSPHATE 4 MG/ML 1 ML VIAL IVP STA (10:50)
[2024-08-04] MEDS: SODIUM CHLORIDE 0.9% 1,000 ML IV STA ×3 (10:54→14:17)
[2024-08-04 11:00] LABS: Basophils % (A) 0 %; Eosinophils # (A) 0.1 k/uL (0-0.7); Eosinophils % (A) 1 %; HCT 42.9 % (39.0-53.0); Lymphocytes # (A) 0.7 k/uL (1.0-4.8); Lymphocytes % (A) 4 %; MCH 31.1 pg (25.0-35.0); MCHC 32.6 g/dL (31.0-37.0); MCV 95.5 fL (80.0-100.0); Mean Platelet Volume 6.9; Monocytes # (A) 1.1 k/uL (0-1.0); Monocytes % (A) 7 %; Neutrophils # (A) 13.3 k/uL (1.3-7.7); Neutrophils % (A) 86 %; Platelet Count 401 k/uL (150-450); RBC 4.49 m/uL (4.30-5.90); RDW 12.9 % (11.5-15.5); WBC 15.5 k/uL (3.8-10.6)
[2024-08-04 11:15] LABS: ALT 33 U/L (4-49); African American GFR (CKD) >90 (>60 ml/min/1.73 sqM); Albumin 4.3 g/dL (3.5-5.0); Anion Gap 12 mmol/L; Blood Urea Nitrogen 14 mg/dL (9-20); Calcium 9.4 mg/dL (8.4-10.2); Carbon Dioxide 25 mmol/L (22-30); Chloride 96 mmol/L (98-107); Glucose 122 mg/dL (74-99); Non-African American GFR(CKD) >90 (>60 ml/min/1.73 sqM); Sodium 133 mmol/L (137-145); Total Bilirubin 1.6 mg/dL (0.2-1.3); Total Protein 7.3 g/dL (6.3-8.2)
[2024-08-04 11:19] LABS: AST 49 U/L (17-59); Alkaline Phosphatase 64 U/L (38-126); Potassium 5.6 mmol/L (3.5-5.1)
[2024-08-04 11:46] LABS: RBC Morphology Normal
--- NOTE | 2024-08-04 12:01 | CT ---
EXAMINATION TYPE: CT soft tissue neck w con DATE OF EXAM: 08/04/2024 11:41 AM COMPARISON: Not HISTORY: NECK SWELLING CT DLP: 242 mGycm Automated exposure control for dose reduction was used. CONTRAST: CT scan of the neck is performed following with IV Contrast, patient injected with 100 mL of Isovue 3 00. Axial images are obtained, coronal and sagittal reformatted images are reviewed. FINDINGS: Findings: The thyroid gland is not enlarged and there are no focal masses. The larynx including the thyroid, arytenoid, cricoid cartilages as well as the vocal cords are normal and symmetric without laryngeal mass. There is no tongue base masses. There are 2 somewhat ill-defined heterogeneously enhancing masses wit h hypodense centers in the left oral pharynx measuring 2.3 x 2.1 cm and 3.0 x 2.1 cm. They obliterate the left piriform sinus and left aryepiglottic fold. There is a 1.5 cm left jugular chain lymph node. The submandibular glands and parotid glands are normal and symmetric. The great vessels of the neck are normal. There is no adenopathy or abscess within the neck. Visualized osseous structures are intact. IMPRESSION: Somewhat ill-defined Left oropharynx peripherally enhancing masses with hypodense centers as describe d above. The findings are suspicious for either tonsillar abscesses with mild lymphadenopathy or neop lasm and further evaluation is warranted.
[2024-08-04] MEDS: AMPICILLIN-SULBACTAM 3 GM in SODIUM CHLORIDE 0.9% 100 ML IVPB STA (12:06)
[2024-08-04 12:12] VITALS: TEMP 98.8
[2024-08-04] MEDS: HYDROmorphone 0.5 MG/0.5 ML SYRINGE IVP STA (13:11)
[2024-08-04] MEDS: ONDANSETRON 4 MG/2 ML VIAL IVP STA (13:12)
[2024-08-04] MEDS: HYDROmorphone 1 MG/ML 1 ML SYRINGE IVP STA (14:16)
[2024-08-04 14:59] VITALS: BP 126/72; PULSE 104; RESP 16
[2024-08-04] MEDS ORDERED: AMPICILLIN-SULBACTAM 3 GM in SODIUM CHLORIDE 0.9% 100 ML IVPB SCH (18:00)
== END 2024-08-04 15:00 | disposition other institution (70) ==
LOC: EC 10:17
DX: A41.9 Sepsis, unspecified organism (principal); J39.0 Retropharyngeal and parapharyngeal abscess; F17.200 Nicotine dependence, unspecified, uncomplicated; Z88.5 Allergy status to narcotic agent; Z91.013 Allergy to seafood
CPT/HCPCS: 36415; 93005; 80053; 83605; 85025; 87040; 70491; 99285; 96365; 96361 ×2; 96375 ×4; 96376; J1100; J2405; J1170 ×2; J0295; J1885; Q9967

== ENCOUNTER 2024-09-09 15:45 | Emergency (ER) | payer OTHER ==
[2024-09-09 15:53] VITALS: TEMP 98
--- NOTE | 2024-09-09 16:33 | ED ---
Recheck HPI - General Source: patient, RN notes reviewed Mode of arrival: ambulatory Limitations: no limitations <BryantTomasaCorin - Last Filed: 09/09/24 16:30> - General Source: patient, RN notes reviewed, old records reviewed Mode of arrival: ambulatory Limitations: no limitations - History of Present Illness MD Complaint: wound re-check, medication refill request -: hour(s) Returns Today for: persistent/worsening pain related to initial visit Symptoms Since Prior Visit: worsening pain Context: ran out of medication Associated Symptoms: none <Juan Adkins - Last Filed: 09/13/24 21:28> - General Chief Complaint: Recheck/Abnormal Lab/Rx Stated Complaint: med refill Time Seen by Provider: 09/09/24 16:30 - History of Present Illness Initial Comments: Quick [id number] male presenting for medication refill request. States he was recently hospitalized at [facility] and underwent 2 surgeries to remove a neck abscess. He was discharged home with a PICC line and his mother has been administering an antibiotic through the PICC line once daily. Patient states his follow-up with his PCP is on 14 September and he was supposed to receive another course of antibiotics as well as pain medication and anxiety medication until he can see his PCP. Patient states he is very anxious and has chronic unmanaged pain. (Corin Bryant) This is a 43-year-old male for medical and medication refill this began around having significant abscess of his neck which resulted in significant inpatient stay requiring intubation and tracheostomy (Juan Adkins) - Related Data Previous Rx's Medication Instructions Recorded HYDROcodone/APAP 10-325MG [[place] 1 tab PO Q6H PRN #15 tab 09/09/24 10-325] LORazepam [Ativan] 2 mg PO TID 3 Days #9 tab 09/09/24 Allergies Allergy/AdvReac Type Severity Reaction Status Date / Time shellfish derived [Shellfish] Allergy Nausea & Verified 09/09/24 15:53 Vomiting codeine AdvReac Nausea & Verified 09/09/24 15:53 Vomiting Review of Systems ROS Other: All systems not noted in ROS Statement are negative. <Corin Bryant - Last Filed: 09/09/24 16:30> ROS Other: All systems not noted in ROS Statement are negative. <Juan Adkins - Last Filed: 09/13/24 21:28> ROS Statement: Those systems with pertinent positive or pertinent negative responses have been documented in the HPI. Past Medical History Past Medical History: Asthma History of Any Multi-Drug Resistant Organisms: None Reported Past Surgical History: No Surgical Hx Reported Past Psychological History: Depression Smoking Status: Current every day smoker Past Alcohol Use History: Rare Past Drug Use History: None Reported <Corin Bryant - Last Filed: 09/09/24 16:30> General Exam Limitations: no limitations <Corin Bryant - Last Filed: 09/09/24 16:30> General appearance: alert, in no apparent distress Head exam: Present: atraumatic, normocephalic, normal inspection Eye exam: Present: normal appearance, PERRL, EOMI. Absent: scleral icterus, conjunctival injection, periorbital swelling ENT exam: Present: normal exam, mucous membranes moist Neck exam: Present: normal inspection. Absent: tenderness, meningismus, lymphadenopathy Respiratory exam: Present: normal lung sounds bilaterally. Absent: respiratory distress, wheezes, rales, rhonchi, stridor Cardiovascular Exam: Present: regular rate, normal rhythm, normal heart sounds. Absent: systolic murmur, diastolic murmur, rubs, gallop, clicks GI/Abdominal exam: Present: soft, normal bowel sounds. Absent: distended, tende rness, guarding, rebound, rigid Extremities exam: Present: normal inspection, full ROM, normal capillary refill. Absent: tenderness, pedal edema, joint swelling, calf tenderness Back exam: Present: normal inspection Neurological exam: Present: alert, oriented X3, CN II-XII intact Psychiatric exam: Present: normal affect, normal mood Skin exam: Present: warm, dry, intact, normal color. Absent: rash <Juan Adkins - Last Filed: 09/13/24 21:28> - General Exam Comments Initial Comments: Visual Physical Exam Vital signs reviewed General: Well-appearing, nontoxic, no acute distress. Head: Normocephalic, atraumatic Eyes: PERRLA, EOMI ENT: Airway patent Chest: Nonlabored breathing Skin: No visual rash, normal skin tone Neuro: Alert and oriented 3 Musculoskeletal: No gross abnormalities (Corin Bryant) Course <Juan Adkins - Last Filed: 09/13/24 21:28> Vital Signs 09/09/24 09/09/24 15:47 19:18 Temperature 98.0 F Pulse Rate 118 H 98 Respiratory 20 18 Rate Blood Pressure 136/83 124/78 O2 Sat by Pulse 99 97 Oximetry - Reevaluation(s) Reevaluation #1: 09/09/24 18:49 Medical record is reviewed (Juan Adkins) Reevaluation #2: 09/09/24 18:49 Patient symptoms unchanged (Juan Adkins) Reevaluation #3: 09/09/24 18:49 Patient informed of results and questions answered (Juan Adkins) Reevaluation #4: Was pt. sent in by a medical professional or institution ([facility], [employer] CERT[employer]IED POWERPL[employer] MECH[employer]IC, urgent care, hospital, or skilled nursing...) When possible be specific @ -no Did you speak to anyone other than the patient for history (EMS, parent, family, police, friend...)? What history was obtained from this source @ -no Did you review nursing and triage notes (agree or disagree)? Why? @ -agree Are old charts reviewed (outside hosp., previous admission, EMS record, old EKG, old radiological studies, urgent care reports/EKG's, skilled nursing records)? Report findings @ -yes Differential Diagnosis (chest pain, altered mental status, abdominal pain women, abdominal pain men, vaginal bleeding, weakness, fever, dyspnea, syncope, headache, dizziness, GI bleed, back pain, seizure, CVA, palpatations, mental health, musculoskeletal)? @ -prior EKG interpreted by me (3pts min.). @ -no X-rays interpreted by me (1pt min.). @ -no CT interpreted by me (1pt min.). @ -no U/S interpreted by me (1pt. min.). @ -no What testing was considered but not performed or refused? (CT, X-rays, U/S, labs)? Why? @ -none What meds were considered but not given or refused? Why? @ -none Did you discuss the management of the patient with other professionals (professionals i.e. [facility], [employer] CERTIFIED POWERPLANT MECHANIC, lab, RT, psych nurse, social work faculty member, facility maintenance helper, teacher, network security officer, rehabilitation caseworker)? Give summary @ -no Was smoking cessation discussed for >3mins.? @ -no Was critical care preformed (if so, how long)? @ -no Were there social determinants of health that impacted care today? How? (Homelessness, low income, unemployed, alcoholism, drug addiction, transportation, low edu. Level, literacy, decrease access to med. care, intermediate, rehab)? @ -none Was there de-escalation of care discussed even if they declined (Discuss DNR or withdrawal of care, Hospice)? DNR status @ -no What co-morbidities impacted this encounter? (DM, HTN, Smoking, COPD, CAD, Cancer, CVA, ARF, Chemo, Hep., AIDS, mental health diagnosis, sleep apnea, morbid obesity)? @ -none Was patient admitted / discharged? Hospital course, mention meds given and route, prescriptions, significant lab abnormalities, going to OR and other pertinent info. @ - 43 male for med refill medications are refilled patient can be discharged home Discharge Undiagnosed new problem with uncertain prognosis? @ -no Drug Therapy requiring intensive monitoring for toxicity (Heparin, Nitro, Insulin, Cardizem)? @ -no Were any procedures done? @ -no Diagnosis/symptom? @ -Medication refill Acute, or Chronic, or Acute on Chronic? @ -Acute Uncomplicated (without systemic symptoms) or Complicated (systemic symptoms)? @ -Complicated Side effects of treatment? @ -no Exacerbation, Progression, or Severe Exacerbation? @ -exacerbation Poses a threat to life or bodily function? How? (Chest pain, [place], [place], pneumonia, PE, COPD, DKA, ARF, appy, cholecystitis, CVA, Diverticulitis, Homicidal, Suicidal, threat to staff... and all critical care pts) @ -yes with medication withdrawal (Juan Adkins) Medical Decision Making <Corin Bryant - Last Filed: 09/09/24 16:30> <Juan Adkins - Last Filed: 09/13/24 21:28> - Medical Decision Making I completed the quick note portion of this chart signed Corin Bryant PA-C (Corin Bryant) 43 male for med refill medications are refilled patient can be discharged home (Juan Adkins) Disposition <Corin Bryant - Last Filed: 09/09/24 16:30> Is patient prescribed a controlled substance at d/c from ED?: No Time of Disposition: 18:45 <Juan Adkins - Last Filed: 09/13/24 21:28> Clinical Impression: Encounter for medication refill Disposition: HOME SELF-CARE Condition: Good Instructions (If sedation given, give patient instructions): Medicine Refill (ED) Prescriptions: LORazepam [Ativan] 2 mg PO TID 3 Days #9 tab HYDROcodone/APAP 10-325MG [[place] 10-325] 1 tab PO Q6H PRN #15 tab PRN Reason: Pain Referrals: Lcuy Hendrickson MD [Primary Care Provider] - 1-2 days
[2024-09-09] MEDS: LORazepam 1 MG TAB PO STA ×2 (19:04→19:05)
[2024-09-09] MEDS: HYDROmorphone 1 MG/ML 1 ML SYRINGE IM STA (19:06)
[2024-09-09] MEDS: traMADol 50 MG STARTER PACK 3 TAB BTL PO STA (19:06)
[2024-09-09] MEDS: cefTRIAXone 1,000 MG VIAL (IM USE) IM STA (19:07)
[2024-09-09 19:20] VITALS: BP 124/78; PULSE 98; RESP 18
== END 2024-09-09 19:20 | disposition home or self-care (01) ==
LOC: EC 15:45
CPT/HCPCS: 96372; 99281